=== PATIENT | male | born 2000 ===

== ENCOUNTER 2025-08-04 01:56 | Emergency (ER) | payer SELFPAY ==
[~2025-08-04] VITALS: Ht 180.3 cm; Wt 123.4 kg
[2025-08-04] MEDS: SODIUM CHLORIDE 0.9% 1000ML 1,000 ML IV ONE (02:50)
[2025-08-04] MEDS: LORAZEPAM INJ 2 MG/ML VIAL IV ONE (02:53)
[2025-08-04] MEDS: MAGNESIUM/ALUMINUM/SIMETHICONE 30 ML UDC PO ONE (03:19)
[2025-08-04] MEDS: FAMOTIDINE 20 MG/2 ML VIAL IV STA (03:19)
[2025-08-04 03:54] VITALS: BP 134/85; PULSE 119; RESP 16; TEMP 98.6; O2SAT 98
[2025-08-04 04:30] VITALS: PULSE 102; RESP 16; TEMP 98.5
[2025-08-04 04:48] VITALS: BP 129/64; PULSE 102; RESP 16; TEMP 98.6; O2SAT 99
== END 2025-08-04 04:48 | disposition home or self-care (01) ==
LOC: EDBD 01:56 → FSED 02:24
DX: R06.02 Shortness of breath (principal); K21.9 Gastro-esophageal reflux disease without esophagitis; R42 Dizziness and giddiness; F15.10 Other stimulant abuse, uncomplicated; F41.9 Anxiety disorder, unspecified; F20.9 Schizophrenia, unspecified; R94.31 Abnormal electrocardiogram [ECG] [EKG]; F17.210 Nicotine dependence, cigarettes, uncomplicated
CPT/HCPCS: 71046; 80053; 80307; 81003; 84484; 85025; 85379; 93005; 96374; 99283; J1308; J2060; J7030